=== PATIENT | female | born 1980 | race Caucasian/White ===

== ENCOUNTER 2016-06-25 18:53 | Emergency (ER) | payer SELFPAY ==
[2016-06-25 19:11] VITALS: BP 129/83
[2016-06-25 22:14] LABS: BASOPHIL % 0.3 % (0-2); PLATELET COUNT 281 x10^3mcL (130-400); RED CELL DISTRIBUTION WIDTH 13.9 % (11.5-14.5)
[2016-06-25 22:55] LABS: CALCIUM 8.4 mg/dL (8.5-10.1); CARBON DIOXIDE 29.4 mmol/L (21-32); CHLORIDE SERUM 105 mmol/L (98-107); CREATININE SERUM 0.6 mg/dL (0.6-1.0); GFR1 > 60 mL/min; GLUCOSE SERUM 86 mg/dL (74-106); POTASSIUM SERUM 3.6 mmol/L (3.5-5.1); SODIUM SERUM 142 mmol/L (136-145)
[2016-06-25 23:00] LABS: ALBUMIN 3.1 g/dL (3.4-5.0); ALKALINE PHOSPHATASE 79 U/L (46-116); ALT/SGPT 14 U/L (14-59); AMYLASE 47 U/L (25-115); AST/SGOT 14 U/L (15-37); BILIRUBIN TOTAL 0.3 mg/dL (0.20-1.00); LIPASE 132 IU/L (73-393); TOTAL PROTEIN, SERUM 7.4 g/dL (6.4-8.2)
[2016-06-25 23:24] LABS: microscopic required? YES; urine erythrocyte TRACE (NEGATIVE)
== END 2016-06-25 22:45 | disposition left against medical advice (07) ==
LOC: ED 18:53
PROVIDERS: Emergency Medicine
DX: R10.31 Right lower quadrant pain (principal); J45.909 Unspecified asthma, uncomplicated; Z88.5 Allergy status to narcotic agent

== ENCOUNTER 2017-07-10 23:22 | Emergency (ER) | payer OTHER ==
[2017-07-10 23:27] VITALS: BP 127/70
== END 2017-07-11 00:41 | disposition home or self-care (01) ==
LOC: ED 23:22
DX: M75.02 Adhesive capsulitis of left shoulder (principal); J45.909 Unspecified asthma, uncomplicated; Z88.5 Allergy status to narcotic agent
CPT/HCPCS: J1885; J3010

== ENCOUNTER 2018-02-22 19:58 | Emergency (ER) | payer OTHER ==
[~2018-02-22] VITALS: Ht 157.5 cm; Wt 80.7 kg
[2018-02-22 20:07] VITALS: BP 120/84; Ht 157.5 cm; Wt 80.7 kg
== END 2018-02-22 21:19 | disposition home or self-care (01) ==
LOC: ED 19:58
DX: J02.9 Acute pharyngitis, unspecified (principal); Z88.5 Allergy status to narcotic agent

== ENCOUNTER 2018-04-23 07:39 | Emergency (ER) | payer OTHER ==
[~2018-04-23] VITALS: Ht 157.5 cm; Wt 78.9 kg
[2018-04-23 07:43] VITALS: Ht 157.5 cm; Wt 78.9 kg
[2018-04-23 08:14] LABS: BASOPHIL % 0.3 % (0-2); PLATELET COUNT 286 x10^3mcL (130-400); RED CELL DISTRIBUTION WIDTH 13.7 % (11.5-14.5)
[2018-04-23 09:42] VITALS: BP 131/78
== END 2018-04-23 09:42 | disposition home or self-care (01) ==
LOC: ED 07:39
PROVIDERS: Emergency Medicine
DX: O26.891 Other specified pregnancy related conditions, first trimester (principal); J45.909 Unspecified asthma, uncomplicated; R10.30 Lower abdominal pain, unspecified; Z88.5 Allergy status to narcotic agent; Z3A.08 8 weeks gestation of pregnancy
CPT/HCPCS: 36415